=== PATIENT | male | born 1995 | race Caucasian/White ===

== ENCOUNTER 2024-03-21 17:02 | Emergency (ER) | payer SELFPAY ==
[~2024-03-21] VITALS: Ht 172.7 cm; Wt 90.7 kg
[2024-03-21 18:33] VITALS: BP 128/72; PULSE 70; RESP 16; TEMP 98.3; O2SAT 98
== END 2024-03-21 20:36 | disposition left against medical advice (07) ==
LOC: MED 17:02
DX: S01.501A Unspecified open wound of lip, initial encounter (principal); S01.502A Unspecified open wound of oral cavity, initial encounter; K03.81 Cracked tooth; Z53.21 Procedure and treatment not carried out due to patient leaving prior to being seen by health care provider; W18.39XA Other fall on same level, initial encounter; Y93.89 Activity, other specified; Y92.89 Other specified places as the place of occurrence of the external cause; Y99.8 Other external cause status